=== PATIENT | male | born 1945 | race Two or more races ===

== ENCOUNTER 2018-08-28 20:47 | Emergency (ER) | payer OTHER, MEDICAID ==
[~2018-08-28] VITALS: Ht 170.2 cm; Wt 77.1 kg
[2018-08-28 21:51] VITALS: BP 149/93
== END 2018-08-29 03:10 | disposition left against medical advice (07) ==
LOC: ER 20:53
DX: R51 Headache (principal); M25.572 Pain in left ankle and joints of left foot; Z53.21 Procedure and treatment not carried out due to patient leaving prior to being seen by health care provider; W01.0XXA Fall on same level from slipping, tripping and stumbling without subsequent striking against object, initial encounter; Y93.89 Activity, other specified; Y92.89 Other specified places as the place of occurrence of the external cause; Y99.8 Other external cause status
CPT/HCPCS: 70450; 70480; 73630